=== PATIENT | female | born 1980 | race Caucasian/White ===

== ENCOUNTER 2022-04-02 13:47 | Outpatient (CLI) | payer OTHER ==
--- NOTE | 2022-04-04 11:17 | MRI Report ---
PROCEDURE: CERVICAL SPINE WO INDICATIONS: CERVICALGIA TECHNIQUE: Noncontrast sagittal T1 spin echo and T2 fast spin echo, sagittal STIR, foraminal oblique sagittal T2 fast spin echo, and axial gradient echo or T2 fast spin echo through the cervical spine. COMPARISON: None. FINDINGS: Image quality: Excellent. Alignment and Curvature: There is trace retrolisthesis of C4 on C5, C5 on C6. There is reversal cerv ical curvature with apex at C4-5. Bone Marrow: Marrow demonstrates normal overall signal. Spinal Cord: Visualized spinal cord has normal size and signal. No cerebellar tonsillar herniation. Paraspinous Soft Tissues: No paravertebral masses. Prevertebral soft tissues are normal in thicknes s. Discs: Mild to moderate desiccation is present most severe at C5-6. C2-C3: Minimal disc bulge without spinal stenosis or foraminal narrowing. C3-C4: Mild disc bulge with minimal spinal stenosis. No foraminal narrowing. C4-C5: Mild disc bulge with superimposed left posterior paracentral protrusion causing moderate comp romise of the left lateral recess. Overall mild bilateral foraminal narrowing with uncovertebral hype rtrophy. C5-C6: Mild disc bulge with superimposed left posterior paracentral protrusion. In addition, there i s a proximal right foraminal protrusion. There is moderate proximal right foraminal narrowing as well as mild to moderate left foraminal narrowing. Moderate spinal stenosis. C6-C7: Mild disc bulge with superimposed left posterior paracentral protrusion causing significant c ompromise of the left lateral recess as well as proximal left foramina. Mild right foraminal narrowin g. C7-T1: No disc bulge, spinal stenosis or foraminal narrowing. IMPRESSION: Multilevel disc bulges including prominent protrusions at C4-5 through C6-7 causing spinal stenosis a s well as foraminal narrowing and compromise of the lateral recesses as above. Reviewed by: Shelly Thornton MD on 04/04/2022 11:16 AM PST Approved by: Shelly Thornton MD on 04/04/2022 11:16 AM PST Station ID: [id number]
== END 2022-04-02 13:48 | disposition home or self-care (01) ==
LOC: DI 13:47
PROVIDERS: ATTEND Nurse Practitioner Family
DX: M50.221 Other cervical disc displacement at C4-C5 level (principal); M50.31 Other cervical disc degeneration, high cervical region; M48.02 Spinal stenosis, cervical region

== ENCOUNTER 2023-12-24 16:50 | Emergency (ER) | payer OTHER ==
[2023-12-24 17:04] VITALS: O2SAT 100
--- NOTE | 2023-12-24 17:11 | ED Physician Documentation ---
PD HPI ABD PAIN - Stated complaint Stated Complaint: ABD PX - Chief complaint Chief Complaint: Abd Pain - History obtained from History obtained from: Patient, Family - Additional information Additional information: Otherwise healthy 42-year-old woman with no history of abdominal surgeries presents with gradual onset right lower quadrant pain starting 2 days ago and starting yesterday developed chills and potentially fevers. She has had diminished bowel movements but is not eating much either because she does not feel like it. No significant nausea though. PD PAST MEDICAL HISTORY - Past Medical History Past Medical History: Yes Psych: Depression, Anxiety, ADD/ADHD - Past Surgical History Past Surgical History: Yes Ortho: Spine surgery - Present Medications Home Medications: Ambulatory Orders Medication Instructions Recorded Confirmed Ciprofloxacin HCl [Cipro] 500 mg PO BID #20 tablet 12/24/23 Dextroamphetamine/Amphetamine 20 mg PO DAILY 12/24/23 12/24/23 [Dextroamp-Amphetamine 5 mg Tab] buPROPion [Wellbutrin Xl] 150 mg PO DAILY 12/24/23 12/24/23 - Allergies Allergies/Adverse Reactions: Allergies Allergy/AdvReac Type Severity Reaction Status Date / Time ibuprofen Allergy Hives Verified 12/24/23 16:56 - Social History Does the pt smoke?: No Smoking Status: Never smoker Does the pt drink ETOH?: No Does the pt have substance abuse?: No - Immunizations Immunizations are current?: Yes - POLST Patient has POLST: No PD ED PE NORMAL - Vitals Vital signs reviewed: Yes - General General: Alert and oriented X 3, Other (Febrile and tachycardic but well- appearing) - Cardiac Cardiac: RRR, No murmur - Respiratory Respiratory: No respiratory distress, Clear bilaterally - Abdomen Abdomen: Normal bowel sounds, Soft, Other (Mild right lower quadrant tenderness without surgical signs) Results - Vitals Vitals: Vital Signs - 24 hr 12/24/23 12/24/23 12/24/23 16:56 17:28 17:30 Temperature 38.2 C H Heart Rate 120 H 102 H 102 H Respiratory 16 17 17 Rate Blood Pressure 149/98 H 129/88 H 129/88 H O2 Saturation 100 100 100 12/24/23 12/24/23 12/24/23 18:00 18:30 19:00 Temperature Heart Rate 90 90 83 Respiratory 16 15 15 Rate Blood Pressure 130/93 H 126/90 H 123/85 H O2 Saturation 100 100 100 Oxygen O2 Source Room air - Labs Labs: Laboratory Tests 12/24/23 12/24/23 12/24/23 17:07 17:07 17:07 WBC 19.7 H RBC 4.39 Hgb 13.9 Hct 41.7 MCV 95.0 MCH 31.7 H MCHC 33.3 RDW 12.1 Plt Count 220 MPV 9.1 Neut # (Auto) Not Reportable Lymph # (Auto) Not Reportable Rooks # (Auto) Not Reportable Eos # (Auto) Not Reportable Baso # (Auto) Not Reportable Absolute Nucleated RBC Not Reportable Total Counted 100 Band Neuts % (Manual) 11 H Abnorm Lymph % (Manual) 0 Nucleated RBC % Not Reportable Neutrophils # (Manual) 16.2 H Lymphocytes # (Manual) 0.8 L Monocytes # (Manual) 2.8 H Eosinophils # (Manual) 0.0 Basophils # (Manual) 0.0 Differential Comment MANUAL DIFFERENTIAL Platelet Estimate NORMAL (130-450,000) Platelet Morphology NORMAL APPEARANCE RBC Morph Micro Appear NORMAL APPEARANCE Sodium 129 L Potassium 3.9 Chloride 92 L Carbon Dioxide 23 Anion Gap 14.0 H BUN 10 Creatinine 0.9 Estimated GFR (MDRD) 69 L Glucose 102 Lactic Acid 1.3 Calcium 9.5 Total Bilirubin 0.8 AST 17 ALT 10 Alkaline Phosphatase 71 Total Protein 8.1 Albumin 4.1 Globulin 4.0 Albumin/Globulin Ratio 1.0 Lipase 12 Urine Color Urine Clarity Urine pH Ur Specific [place] Urine Protein Urine Glucose (UA) Urine Ketones Urine Occult Blood Urine Nitrite Urine Bilirubin Urine Urobilinogen Ur Leukocyte Esterase Urine RBC Urine WBC Ur Squamous Epith Cells Urine Bacteria Ur Microscopic Review Urine Culture Comments Urine HCG, Qual 12/24/23 17:10 WBC RBC Hgb Hct MCV MCH MCHC RDW Plt Count MPV Neut # (Auto) Lymph # (Auto) Rooks # (Auto) Eos # (Auto) Baso # (Auto) Absolute Nucleated RBC Total Counted Band Neuts % (Manual) Abnorm Lymph % (Manual) Nucleated RBC % Neutrophils # (Manual) Lymphocytes # (Manual) Monocytes # (Manual) Eosinophils # (Manual) Basophils # (Manual) Differential Comment Platelet Estimate Platelet Morphology RBC Morph Micro Appear Sodium Potassium Chloride Carbon Dioxide Anion Gap BUN Creatinine Estimated GFR (MDRD) Glucose Lactic Acid Calcium Total Bilirubin AST ALT Alkaline Phosphatase Total Protein Albumin Globulin Albumin/Globulin Ratio Lipase Urine Color YELLOW Urine Clarity CLOUDY Urine pH 6.0 Ur Specific [place] 1.015 Urine Protein 30 H Urine Glucose (UA) NEGATIVE Urine Ketones 40 H Urine Occult Blood LARGE H Urine Nitrite POSITIVE H Urine Bilirubin NEGATIVE Urine Urobilinogen 0.2 (NORMAL) Ur Leukocyte Esterase SMALL H Urine RBC 6-10 H Urine WBC 11-25 H Ur Squamous Epith Cells FEW Squamous Urine Bacteria Moderate H Ur Microscopic Review INDICATED Urine Culture Comments INDICATED Urine HCG, Qual NEGATIVE - Rads (name of study) CT a/p Relevant Findings:: Final report received, EMP independent interpretation of test PD Medical Decision Making - ED course ED course: She presents with right-sided abdominal pain and fever. She appears well. Differential would include appendicitis or pyelonephritis and workup demonstrates significant leukocytosis, mild hyponatremia, no lactic acidosis, pyuria with evidence of pyelonephritis on CT. She was treated with Rocephin and Cipro to go home with pending cultures. She remained well-appearing and nontoxic in the department. Departure - Departure Disposition: Home, Self Care Clinical Impression: Pyelonephritis Condition: Good Record reviewed to determine appropriate education?: Yes Instructions: ED Kidney Infec Female Prescriptions: Ciprofloxacin HCl [Cipro] 500 mg PO BID #20 tablet Comments: I sent your prescriptions electronically to the [facility]. Go to there tomorrow to roll picker the remainder of the antibiotics. We will culture your urine, the results should be done in 48-72 hours. If an antibiotic change is necessary we will call you. Return if worse in the meantime, especially if you develop increasing flank pain, fevers, or cannot keep down the medication. Fo llow-up with your doctor midweek for recheck. Forms: PCP List
[2023-12-24 17:13] LABS: BASOPHILS % (AUTO) 0.2 %; EOSINOPHILS % (AUTO) 0.7 %; HCT - HEMATOCRIT 41.7 % (37.0-47.0); HGB - HEMOGLOBIN 13.9 g/dL (12.0-16.0); LYMPHOCYTES % (AUTO) 5.6 %; MEAN CORPUSCULAR HEMOGLOBIN 31.7 pg (27.0-31.0); MEAN CORPUSCULAR HGB CONC 33.3 g/dL (32.0-36.0); MEAN PLATELET VOLUME 9.1 fL (7.9-10.8); MONOCYTES % (AUTO) 11.5 %; NEUTROPHILS % (AUTO) 81.5 %; PLT - PLATELET COUNT 220 10^3/uL (130-450); RED BLOOD COUNT 4.39 10^6/uL (4.20-5.40); RED CELL DISTRIBUTION WIDTH 12.1 % (12.0-15.0); WHITE BLOOD COUNT 19.7 x10^3/uL (4.8-10.8)
[2023-12-24 17:15] LABS: ABNORMAL LYMPHS % (MANUAL) 0 %
[2023-12-24 17:19] LABS: BILIRUBIN,URINE NEGATIVE (NEGATIVE); GLUCOSE, URINE (UA) NEGATIVE (NEGATIVE); KETONES,URINE (UA) 40 mg/dL (NEGATIVE); LEUKOCYTE ESTERASE, URINE SMALL (NEGATIVE); NITRITE,URINE POSITIVE (NEGATIVE); OCCULT BLOOD,URINE LARGE (NEGATIVE); PROTEIN,URINE 30 mg/dL (NEGATIVE); UROBILINOGEN,URINE 0.2 (NORMAL) E.U./dL (NORMAL)
[2023-12-24 17:22] LABS: CLARITY,URINE CLOUDY (CLEAR); HCG UR QUAL NEGATIVE
[2023-12-24] MEDS: KETOROLAC 15 MG/ML VIAL IVP STA (17:24)
[2023-12-24] MEDS: HYDROmorphone 1 MG/ML CARPUJECT IVP STA (17:25)
[2023-12-24 17:27] LABS: ALBUMIN 4.1 g/dL (3.2-5.5); BILIRUBIN,TOTAL 0.8 mg/dL (0.2-1.0); CALCIUM 9.5 mg/dL (8.5-10.3); CREATININE 0.9 mg/dL (0.6-1.3); POTASSIUM 3.9 mmol/L (3.5-4.5); TOTAL PROTEIN 8.1 g/dL (6.4-8.9)
[2023-12-24 17:34] LABS: BACTERIA,URINE Moderate /HPF (None Seen); SQUAMOUS EPITHELIAL CELL,UR FEW Squamous (<= Few)
[2023-12-24 17:43] LABS: BAND NEUTROPHILS % (MANUAL) 11 %; DIFFERENTIAL COMMENT MANUAL DIFFERENTIAL; LYMPHOCYTES # (MANUAL) 0.8 10^3/uL (1.5-3.5); LYMPHOCYTES % (MANUAL) 4 %; MONOCYTES # (MANUAL) 2.8 10^3/uL (0.0-1.0); NEUTROPHILS # (MANUAL) 16.2 10^3/uL (1.5-6.6); PLATELET ESTIMATE, MANUAL NORMAL (130-450,000) (NORMAL); PLATELET MORPHOLOGY NORMAL APPEARANCE (NORMAL); RBC MORPHOLOGY (MULTIPLE) NORMAL APPEARANCE (NORMAL)
[2023-12-24] MEDS: SODIUM CHLORIDE 0.9% 1,000 ML IV STA (17:47)
[2023-12-24] MEDS ORDERED: iohexoL-300 100 ML VIAL ONE (17:50)
[2023-12-24] MEDS: iohexoL-300 100 ML VIAL IVP ONE (18:13)
[2023-12-24] MEDS: cefTRIAXone 1 GM VIAL IVP STA (18:43)
--- NOTE | 2023-12-24 19:18 | CT Report ---
PROCEDURE: Abdomen/Pelvis W INDICATIONS: IV only, right lower quadrant pain TECHNIQUE: Helical axial CT of the abdomen and pelvis was obtained after intravenous contrast adminis tration and reformatted in multiple planes. Radiation dose reduction was achieved using automated exp osure control or adjustment of mA and/or kV according to patient size. COMPARISON: None FINDINGS: Lower thorax: The lung bases are clear. Heart size normal. No hiatal hernia. Liver: Normal in size and attenuation. No contour deformity present. Biliary system: No calcified cholelithiasis or pericholecystic inflammation. No evidence of bile du ct dilatation. Pancreas: Unremarkable without mass or inflammation evident. Spleen: Normal in size and density. Adrenals: Normal morphology and density. Reproductive system: Unremarkable as visualized. Urinary system: Wedge-shaped multifocal right renal hypoperfusion consistent with pyelonephritis. Mi ld perinephric edema. No hydronephrosis. Urinary bladder unremarkable. Gastrointestinal system: The bowel appears unremarkable with no evidence of bowel obstruction or inf lammation. The stomach appears unremarkable. Peritoneal spaces: No mesenteric or retroperitoneal adenopathy. No free air. No free fluid. Vasculature: The IVC, aorta and iliac vasculature are unremarkable. Abdominal wall: Abdominal wall is intact without evidence of ventral or inguinal hernias. Musculoskeletal: Normal bone mineralization. No acute fractures. IMPRESSION: Right-sided pyelonephritis. No obstructive uropathy. Reviewed by: Edison Pfeiffer MD on 12/24/2023 6:17 PM ERIC Approved by: Edison Pfeiffer MD on 12/24/2023 6:17 PM AKDT Station ID: [id number]
[2023-12-24 19:30] VITALS: BP 123/85
[2023-12-24] MEDS: HYDROcod/ACET 5/325 Prepack 4 PO STA (19:31)
== END 2023-12-24 19:36 | disposition home or self-care (01) ==
LOC: ED 16:50
DX: N12 Tubulo-interstitial nephritis, not specified as acute or chronic (principal); B96.20 Unspecified Escherichia coli [E. coli] as the cause of diseases classified elsewhere; Z16.11 Resistance to penicillins; D72.829 Elevated white blood cell count, unspecified; E87.1 Hypo-osmolality and hyponatremia
CPT/HCPCS: 36415; 74177; 80053; 81001; 81025; 83605; 83690; 85025; 87077; 87086; 87181; 96361; 96374; 96375; 99283; 99284; J1170; Q9967; 81003